=== PATIENT | female | born 1955 | race Two or more races ===

== ENCOUNTER 2018-11-17 07:15 | Inpatient (IN) | payer OTHER ==
[~2018-11-17] VITALS: Ht 152.4 cm; Wt 81.6 kg
[2018-11-17] MEDS ORDERED: NORVASC5 MG PO (09:56)
[2018-11-17] MEDS ORDERED: PRAVASTATIN SOD20 MG PO (09:57)
[2018-11-17] MEDS ORDERED: SYNTHROID75 MCG PO (09:57)
[2018-11-17] MEDS ORDERED: VIT E PO (09:58)
[2018-11-17] MEDS ORDERED: MULTIVITAMINS1 EAC9 PO (09:58)
[2018-11-17] MEDS ORDERED: FOLGARD TABLET1 EACH PO (09:58)
[2018-11-17] MEDS ORDERED: BETA CAROT10000 UNIT PO (09:59)
== END 2018-11-24 15:41 | disposition home or self-care (01) | DRG 735 ==
LOC: EDUNIT# 07:15 → O/R 11-23 06:00 → OB/GYN 11-23 06:00 → SURH 11-23 07:15 → OB/GYN 11-23 14:31
PROVIDERS: ADMIT Obstetrics & Gynecology Gynecologic Oncology
PROC: 0UT9FZZ Resection of Uterus, Via Natural or Artificial Opening With Percutaneous Endoscopic Assistance (ICD-10-PCS; 2018-11-23)
PROC: 0UT7FZZ Resection of Bilateral Fallopian Tubes, Via Natural or Artificial Opening With Percutaneous Endoscopic Assistance (ICD-10-PCS; 2018-11-23)
PROC: 0UT2FZZ Resection of Bilateral Ovaries, Via Natural or Artificial Opening With Percutaneous Endoscopic Assistance (ICD-10-PCS; 2018-11-23)
PROC: 0T9B70Z Drainage of Bladder with Drainage Device, Via Natural or Artificial Opening (ICD-10-PCS; 2018-11-23)
PROC: 07TC4ZZ Resection of Pelvis Lymphatic, Percutaneous Endoscopic Approach (ICD-10-PCS; principal; 2018-11-23 09:45)
DX: C54.1 Malignant neoplasm of endometrium (principal); E03.8 Other specified hypothyroidism